=== PATIENT | male | born 1990 | race Caucasian/White ===

== ENCOUNTER 2024-06-06 19:21 | Emergency (ER) | payer MEDICAID ==
[~2024-06-06] VITALS: Ht 182.9 cm; Wt 108.9 kg
[2024-06-06 19:53] VITALS: BP 120/69; TEMP 98
[2024-06-06] MEDS ORDERED: IBUP-1955 PO (20:20)
[2024-06-06 20:26] VITALS: O2SAT 97
== END 2024-06-06 20:37 | disposition home or self-care (01) ==
LOC: EDBD 19:29 → ER 19:29
DX: N48.89 Other specified disorders of penis (principal)